=== PATIENT | female | born 1980 | race Caucasian/White ===

== ENCOUNTER 2022-06-09 10:09 | Outpatient (CLI) | payer OTHER, SELFPAY ==
--- NOTE | 2022-06-09 10:15 | CRLHL7_ITS ---
For Patients: As a result of the Cures Act, medical imaging exams and procedure reports are released immediately into your electronic medical record. You may view this report before your referring provider. If you have questions, please contact your health care provider. BILATERAL SCREENING MAMMOGRAM WITH COMPUTER-AIDED DETECTION AND TOMOSYNTHESIS TECHNIQUE: CC and MLO views were obtained. These mammographic images have been obtained using full-field digital technique. These mammographic images were interpreted with the benefit of computer-aided detection. Breast Tomosynthesis was used in this interpretation. COMPARISON FILM: 08/16/20. FINDINGS: The breasts are heterogeneously dense, which may obscure small masses IMPRESSION: There is no radiographic evidence for malignancy. ASSESSMENT: BI-RADS Category 2: Benign RECOMMENDATION: Routine screening mammogram in 1 year. A lay language report of this examination will be provided to the patient. Favian Gutiérrez M.D. Diagnostic Radiologist [email or web address] [email or web address] / be/Dictated by: Favian Gutiérrez MD @ 06/09/2022 12:27:00 PM (Electronically Signed)
== END 2022-06-09 10:10 | disposition home or self-care (01) ==
LOC: MAMMO 10:10
PROVIDERS: PCP Physician Assistant Medical; Visit Provider Physician Assistant Medical
DX: Z12.31 Encounter for screening mammogram for malignant neoplasm of breast (principal); R92.2 Inconclusive mammogram
CPT/HCPCS: 77063; 77067

== ENCOUNTER 2022-10-21 10:19 | Outpatient (CLI) | payer OTHER, SELFPAY | END 2022-10-21 10:20 | disposition home or self-care (01) | PROVIDERS: PCP Physician Assistant Medical; Visit Provider Physician Assistant Medical | DX: Z00.00 Encounter for general adult medical examination without abnormal findings (principal); E78.5 Hyperlipidemia, unspecified; E55.9 Vitamin D deficiency, unspecified; D50.9 Iron deficiency anemia, unspecified; F41.1 Generalized anxiety disorder | CPT/HCPCS: 80053; 80061; 82306; 84443 ==

== ENCOUNTER 2023-04-02 20:02 | Outpatient (CLI) | payer OTHER, SELFPAY ==
--- NOTE | 2023-04-14 13:01 | W.PM.SLEEP ---
Sleep Study Details Details Interpreting Provider: Segundo Date of Sleep Study: 04/02/23 Sleep Study Details: STUDY TYPE:? Home unattended ? BMI:? 41.6 ORDERING PROVIDER:Lakeisha Santillan INDICATION:? Concerns about sleep apnea ? SLEEP SUMMARY:? 302.5 minutes monitored RESPIRATORY SUMMARY:? AHI 57.9, supine 51.4, left lateral 114, right lateral 49.1 Low oxygen 85 2.6% of study oxygen less than 90% Snoring 6.6% PERIODIC LIMB MOVEMENTS OF SLEEP:? Not recorded during home study CARDIAC:? Range 56-102, mean 78.9 beats per minute IMPRESSION:? Severe obstructive sleep apnea RECOMMENDATION: AutoSet CPAP pressure 4-17 versus in-lab titration. Weight loss is also recommended.
== END 2023-04-02 20:03 | disposition home or self-care (01) ==
LOC: SLEEP 20:03
PROVIDERS: PCP Physician Assistant Medical; Visit Provider Physician Assistant Medical
DX: G47.33 Obstructive sleep apnea (adult) (pediatric) (principal)
CPT/HCPCS: 95806

== ENCOUNTER 2023-05-12 11:00 | Outpatient (CLI) | payer OTHER, SELFPAY | END 2023-05-12 11:01 | disposition home or self-care (01) | LOC: LKVREF 11:01 | PROVIDERS: PCP Physician Assistant Medical; Visit Provider Otolaryngology | DX: G25.81 Restless legs syndrome (principal); E78.5 Hyperlipidemia, unspecified; E55.9 Vitamin D deficiency, unspecified | CPT/HCPCS: 82728 ==

== ENCOUNTER 2023-09-22 08:44 | Outpatient (CLI) | payer OTHER, SELFPAY | END 2023-09-22 08:45 | disposition home or self-care (01) | PROVIDERS: PCP Physician Assistant Medical; Visit Provider Obstetrics & Gynecology | DX: E78.5 Hyperlipidemia, unspecified (principal); Z83.49 Family history of other endocrine, nutritional and metabolic diseases; Z13.29 Encounter for screening for other suspected endocrine disorder | CPT/HCPCS: 80061; 84443 ==

== ENCOUNTER 2023-09-30 15:54 | Outpatient (CLI) | payer OTHER, SELFPAY ==
--- NOTE | 2023-09-30 16:00 | US_ITS ---
Patient: SHITAL PACK Facility:?[facility] Patient ID:?[id number] Site Patient ID:?[id number]. Site :?[id number] Study:?US-Pelvis -09/30/2023 4:29:59 PM Ordering Physician:?ANTOINE JONES Final Report: INDICATION: ABNORMAL UTERINE BLEEDING COMPARISON: 04/18/2020 TECHNIQUE: 2D agustin scale and color Doppler images were acquired of the pelvis using a transabdominal and transvaginal approach. FINDINGS: Sonographic images demonstrate a normal size and smooth outer contour of the uterus. Uterus measures 8.5 cm in length by 4.3 cm in AP diameter by 6.0 cm in transverse dimension. The myometrium has a normal uniform echotexture. The endometrial lining appears heterogeneous and measures 9 mm in composite thickness. Focal hyperechoic structures associated with the endometrium are present measuring up to 7 millimeters. The right ovary measures 3.1 x 2.2 x 2.5 cm in size and the left ovary measures 6.3 x 3.2 x 3.5 cm. The ovaries demonstrate normal arterial and venous blood flow on color Doppler analysis. There are no suspicious fluid collections within the cul-de-sac. Left ovarian cyst is present with internal reticular echoes measuring 3.6 x 2.9 x 3.3 cm. No internal blood flow within this cyst. IMPRESSION: Endometrium is heterogeneous and measures 9 millimeters with suggestion of endometrial polyps. Hemorrhagic left ovarian cyst measuring 3.6 cm. Dictated by Favian Gutiérrez MD @ 10/01/2023 11:15:57 AM Signed by:?Favian Gutiérrez MD @10/01/2023 11:15:57 AM (Electronic Signature)
== END 2023-09-30 15:55 | disposition home or self-care (01) ==
LOC: US 15:54
PROVIDERS: PCP Physician Assistant Medical; Visit Provider Obstetrics & Gynecology
DX: N93.9 Abnormal uterine and vaginal bleeding, unspecified (principal); R93.89 Abnormal findings on diagnostic imaging of other specified body structures; N83.202 Unspecified ovarian cyst, left side
CPT/HCPCS: 76830; 76856

== ENCOUNTER 2023-11-19 11:23 | Outpatient (CLI) | payer OTHER, SELFPAY ==
--- NOTE | 2023-11-19 11:30 | MM_ITS ---
Patient: SHITAL PACK Facility:?[facility] Patient ID:?[id number] Site Patient ID:?[id number] Site :?1980 Study:?XRay-Breast Bilateral 3D W/CAD-11/19/2023 11:51:59 AM Ordering Physician:Kelsey Final Report: BILATERAL SCREENING MAMMOGRAM WITH COMPUTER-AIDED DETECTION AND TOMOSYNTHESIS TECHNIQUE: CC and MLO views were obtained. These mammographic images have been obtained using full-field digital technique. These mammographic images were interpreted with the benefit of computer-aided detection. Breast Tomosynthesis was used in this interpretation. COMPARISON FILM: 06/09/22, 08/16/20. FINDINGS: There are scattered areas of fibroglandular density IMPRESSION: There is no radiographic evidence for malignancy. ASSESSMENT: BI-RADS Category 1: Negative RECOMMENDATION: Routine screening mammogram in 1 year. A lay language report of this examination will be provided to the patient. Favian Gutiérrez M.D. Diagnostic Radiologist [email or web address] [email or web address] Transcribed: 2:11 p.anabell dao/Dictated by: Favian Gutiérrez MD @ 11/19/2023 12:08:00 PM Signed by:?Favian Gutiérrez MD @11/19/2023 2:28:34 PM (Electronic Signature)
== END 2023-11-19 11:24 | disposition home or self-care (01) ==
LOC: MAMMO 11:25
PROVIDERS: PCP Physician Assistant Medical; Visit Provider Physician Assistant Medical
DX: Z12.31 Encounter for screening mammogram for malignant neoplasm of breast (principal)
CPT/HCPCS: 77063; 77067

== ENCOUNTER 2024-04-05 08:20 | Day surgery (SDC) | payer OTHER, SELFPAY ==
[2024-04-05] MEDS: LACTATED RINGERS 1000 ML 1,000 ML 100 ML IV (08:40)
[2024-04-05 08:44] VITALS: BMI 46.7
[2024-04-05 08:47] VITALS: BP 117/81; PULSE 74; RESP 16; TEMP 36.7; O2SAT 97
[2024-04-05 08:51] LABS: Ur HCG Qualitative* Negative (Negative)
[2024-04-05] MEDS: SODIUM CHLORIDE 0.9 % (FLUSH) 10 ML SYRINGE IVF (09:13)
--- NOTE | 2024-04-05 09:32 | W.PM.H&PU ---
History & Physical Update History & Physical Update H&P Reviewed and patient assessed: No changes noted
--- NOTE | 2024-04-05 09:41 | SUR.OPER ---
PATIENT QUESTIONS ANSWERED SATISFACTORILY PREOPERATIVELY. PATIENT BROUGHT TO OR #1 PER CART. Patient positioned supine on OR #1 bed.? Perioperative team supported arms bilaterally on arm boards.? Final approval of positioning by surgeon. CONTINUOUS IRRIGATION OF THE UTERUS WITH NACL DURING PROCEDURE.
--- NOTE | 2024-04-05 10:06 | W.ANESCHARGE ---
Anesthesia Charges Start Date/Time Anesthesia Start Date: 04/05/24 Anesthesia Start Time: 09:49 Stop Date/Time Anesthesia Stop Date: 04/05/24 Anesthesia Stop Time: 10:38
[2024-04-05] MEDS: BUPIVACAINE 0.5% 30 ML 9 ML INJECTION (10:09)
--- NOTE | 2024-04-05 10:33 | P.GYNPRC_ITS ---
Procedure Note Date of procedure: 04/05/24 Will [facility] bill your pro fee for this procedure?: Yes Pre-op diagnosis: Abnormal uterine bleeding-suspected polyps Post-op diagnosis: Abnormal uterine bleeding-suspected polyps Procedure: Hysteroscopy, dilation and curettage Anesthesia: MAC Complications: None Surgeon: Katherine Duarte MD Estimated blood loss (mL): 5 IV fluids (mL): 500 Urine Output (mL): 100 Pathology: specimen obtained, sent to pathology Condition: stable Disposition: same day Findings: Findings: External genitalia: adequate for sex ad age, external hemorrhoids and skin tags from previous external hemorrhoids. Cervix: Grossly normal, no abnormal discharge or gross lesions. Intrauterine cavity: Bilateral cornual openings seen, thick and fluffy endometrium. Procedure Description: Patient was taken to the OR were MAC anesthesia was administered without difficulty. She was placed in the dorsal lithotomy position with Nabil type stirrups. Patient was then prepared and draped in the normal sterile fashi on.Exam under anesthesia with findings as above. A bivalved speculum was inserted in the posterior aspect of the vagina. 0.25% Marcaine was injected at 2 and 11 o'clock a total of about 9mL utilized. A single-tooth tenaculum was used to grasp the anterior lip of the cervix. The cervical os was sequentially dilated to accommodate the 5 mm TrueClear hysteroscope using Hegar dilators. A 5 mm 30 degree TrueClear hysteroscope was introduced under direct visualization, and the uterus was distended with normal saline. Findings as above. Soft tissue incisor blade from TrueClear hysteroscope system was introduced under direct visualization and endometrial curettings performed. Hysteroscope removed under direct visualization. Tenaculum was removed from the cervix and good hemostasis was noted at puncture sites. Patient tolerated the procedure well. Instrument and sponge counts were correct x2. The patient was awakened from MAC anesthesia and taken to the recovery room in a stable condition. The patient will go home after recovering from anesthesia and meeting all the criteria for discharge. She was given instruction regarding follow-up visit in 2 weeks at [facility] and instructions for pain medication. Fluid deficit: 100mL
[2024-04-05 10:34] VITALS: BP 117/75; PULSE 74; RESP 16; TEMP 36.4; O2SAT 89
[2024-04-05 10:45] VITALS: BP 101/77; PULSE 72; RESP 16; O2SAT 95
[2024-04-05 11:00] VITALS: BP 100/71; PULSE 70; RESP 16; O2SAT 95
[2024-04-05 11:15] VITALS: BP 104/74; PULSE 72; RESP 16; O2SAT 95
== END 2024-04-05 11:20 | disposition home or self-care (01) ==
LOC: OR 08:22
PROVIDERS: PCP Physician Assistant Medical; Visit Provider Obstetrics & Gynecology
PROC: 0UDB8ZZ Extraction of Endometrium, Via Natural or Artificial Opening Endoscopic (ICD-10-PCS; CPT 58558; principal; 2024-04-05 09:30)
DX: N93.8 Other specified abnormal uterine and vaginal bleeding (principal); R73.03 Prediabetes; E66.01 Morbid (severe) obesity due to excess calories; Z68.42 Body mass index [BMI] 45.0-49.9, adult
CPT/HCPCS: 58558; 00952; 81025; 88305; C1782; J0665; J1100; J1885; J2250; J2405; J2704; J3010; J7120

== ENCOUNTER 2024-12-20 14:33 | Outpatient (CLI) | payer OTHER, SELFPAY ==
--- NOTE | 2024-12-20 14:40 | CRLHL7_ITS ---
For Patients: As a result of the Century Cures Act, medical imaging exams and procedure reports are released immediately into your electronic medical record. You may view this report before your referring provider. If you have questions, please contact your health care provider. INDICATION: BILATERAL SCREENING MAMMOGRAM, ASYMPTOMATIC 44 Y/O FEMALE COMPARISON: 11/19/2023, 06/09/2022, 08/16/2020 TECHNIQUE: Digital mammogram in CC and MLO projections including computer-aided detection (CAD) and tomosynthesis. BREAST COMPOSITION: There are scattered areas of fibroglandular density. FINDINGS: No suspicious findings. ASSESSMENT: BI-RADS 2 Benign RECOMMENDATION: Annual screening mammogram. A lay language report of this examination will be provided to the patient. Dictated by: Favian Gutiérrez MD @ 12/21/2024 11:37:39 (Electronically Signed)
== END 2024-12-20 14:34 | disposition home or self-care (01) ==
LOC: MAMMO 14:34
PROVIDERS: PCP Physician Assistant Medical; Visit Provider Physician Assistant Medical
DX: Z12.31 Encounter for screening mammogram for malignant neoplasm of breast (principal)
CPT/HCPCS: 77063; 77067

== ENCOUNTER 2025-02-28 10:47 | Outpatient (CLI) | payer OTHER, SELFPAY | END 2025-02-28 10:48 | disposition home or self-care (01) | LOC: NFLDREF 03-02 02:21 | PROVIDERS: PCP Physician Assistant Medical; Referring Provider Physician Assistant Medical; Visit Provider Physician Assistant Medical | DX: E55.9 Vitamin D deficiency, unspecified (principal); E78.5 Hyperlipidemia, unspecified; D50.9 Iron deficiency anemia, unspecified; F51.01 Primary insomnia; N93.9 Abnormal uterine and vaginal bleeding, unspecified; E66.01 Morbid (severe) obesity due to excess calories; Z68.42 Body mass index [BMI] 45.0-49.9, adult | CPT/HCPCS: 80053; 80061; 82306; 82728; 84443 ==